=== PATIENT | female | born 1935 | race Caucasian/White ===

== ENCOUNTER 2021-07-09 10:55 | Outpatient (CLI) | payer MEDICARE, BC | END 2021-07-09 10:56 | disposition home or self-care (01) | LOC: CSHMAMMO 10:55 | PROVIDERS: ATTEND Family Medicine | DX: M81.0 Age-related osteoporosis without current pathological fracture (principal); M85.88 Other specified disorders of bone density and structure, other site | CPT/HCPCS: 77080 ==

== ENCOUNTER 2021-08-05 22:15 | Inpatient (IN) | payer MEDICARE, BC ==
[2021-08-05] MEDS ORDERED: Diltiazem 125 MG/25 ML ONE (22:45)
[2021-08-05 23:07] LABS: #Eosinphils 0.1 10x3/uL (0.0-0.5); #Monocytes 0.5 10x3/uL (0.0-1.1); #Neutrophils 1.8 10x3/uL (1.5-8.4); %Basophils 0.8 % (0.0-2.0); %Eosinophils 2.8 % (0.0-6.0); %Lymphocytes 38.2 % (18.0-47.0); %Monocytes 12.1 % (0.0-10.0); %Neutrophils 45.8 % (40.0-75.0); Hemoglobin 11.7 g/dL (12.0-15.5); Mean Corpuscular HGB CONC 32.4 g/dL (32.0-36.0); Mean Corpuscular Hemoglobin 31.3 pg (27.0-33.0); Mean Corpuscular Volume 96.5 fl (81.6-98.3); Mean Platelet Volume 10.1 fl (7.4-10.4); Platelet Count 148 10x3/uL (150-450); RBC Distribution Width 12.6 % (11.5-14.5); Red Blood Cell (RBC) Count 3.74 10x6/uL (3.90-5.03)
[2021-08-05 23:21] LABS: ALT (SGPT) 15 U/L (8-55); AST (SGOT) 21 U/L (5-34); Albumin 4.1 g/dL (3.4-4.8); Alkaline Phosphatase 64 U/L (40-110); Anion Gap 15 mmol/L (10-20); BUN (Urea Nitrogen) 14 mg/dL (9.8-20.1); Bilirubin, Total 0.4 mg/dL (0.2-1.2); Calc. Creatinine Clearance 0 mL/min (70-130); Calcium 9.9 mg/dL (7.8-10.44); Carbon Dioxide 26 mmol/L (23-31); Chloride 102 mmol/L (98-107); Globulin 3.1 g/dL (2.4-3.5); Glucose 150 mg/dL (83-110); Magnesium 1.8 mg/dL (1.6-2.6); Potassium 3.3 mmol/L (3.5-5.1); Protein, Total 7.2 g/dL (5.8-8.1); Sodium 140 mmol/L (136-145)
[2021-08-06] MEDS ORDERED: Ondansetron PF 4 MG/2 ML Vial IVP PRN (00:35)
[2021-08-06] MEDS ORDERED: Ondansetron ODT 4 MG TAB PO PRN (00:35)
[2021-08-06] MEDS ORDERED: Acetaminophen 325 MG TAB PO PRN (00:35)
[2021-08-06 00:44] LABS: SARS-CoV-2 NAA Rapid Test Not Detected (NotDetected)
[2021-08-06] MEDS ORDERED: Potassium Chloride 20 MEQ TAB PO SCH (00:45)
[2021-08-06] MEDS ORDERED: Diltiazem 125 MG, Admixture Fee 1 EACH in Sodium Chloride 0.9% 100 ML IVPB SCH (01:00)
[2021-08-06 01:22] LABS: INR-International Normal Ratio 0.9; PTT 23.4 sec (22.0-33.0); Prothrombin Time 9.9 sec (9.5-12.1)
[2021-08-06 01:45] LABS: #Eosinphils 0.1 10x3/uL (0.0-0.5); #Monocytes 0.6 10x3/uL (0.0-1.1); #Neutrophils 2.4 10x3/uL (1.5-8.4); %Basophils 0.7 % (0.0-2.0); %Eosinophils 3.2 % (0.0-6.0); %Lymphocytes 28.7 % (18.0-47.0); %Monocytes 13.3 % (0.0-10.0); %Neutrophils 53.9 % (40.0-75.0); Hemoglobin 11.3 g/dL (12.0-15.5); Mean Corpuscular HGB CONC 33.9 g/dL (32.0-36.0); Mean Corpuscular Hemoglobin 31.9 pg (27.0-33.0); Mean Corpuscular Volume 94.1 fl (81.6-98.3); Mean Platelet Volume 10.2 fl (7.4-10.4); Platelet Count 137 10x3/uL (150-450); RBC Distribution Width 12.5 % (11.5-14.5); Red Blood Cell (RBC) Count 3.54 10x6/uL (3.90-5.03); White Blood Cell (WBC) Count 4.4 10x3/uL (3.5-10.5)
[2021-08-06 02:03] LABS: Magnesium 1.8 mg/dL (1.6-2.6)
[2021-08-06 02:05] VITALS: BMI 24.0
[2021-08-06 02:07] LABS: Troponin I 0.027 ng/mL (< 0.028)
[2021-08-06] MEDS: Apixaban 5 MG TAB PO SCH ×2 (02:22→13:32)
[2021-08-06 02:23] LABS: Anion Gap 16 mmol/L (10-20); BUN (Urea Nitrogen) 13 mg/dL (9.8-20.1); Calc. Creatinine Clearance 50 mL/min (70-130); Calcium 9.7 mg/dL (7.8-10.44); Carbon Dioxide 25 mmol/L (23-31); Cardiac Risk 2.4 (Less than 4.5); Chloride 105 mmol/L (98-107); Cholesterol 157 mg/dl (< 200 Desired); Glucose 119 mg/dL (83-110); HDL Cholesterol 65 mg/dL (>60 Neg Risk); LDL Cholesterol, Calculated 75 mg/dL; Potassium 3.7 mmol/L (3.5-5.1); Sodium 142 mmol/L (136-145); Triglycerides 84 mg/dL (Less than 150)
[2021-08-06] MEDS ORDERED: Potassium Chloride 20 MEQ in Premix Bag 1 BAG IVPB SCH (03:00)
[2021-08-06 04:51] LABS: Troponin I 0.046 ng/mL (< 0.028)
[2021-08-06] MEDS ORDERED: Loratadine 10 MG TAB PO PRN (07:59)
[2021-08-06] MEDS ORDERED: Moisturizing Cream (Eucerin) 113 GM JAR TOP PRN (07:59)
[2021-08-06] MEDS ORDERED: Labetalol HCl 100 MG/20 ML VIAL SLOW IVP PRN (07:59)
[2021-08-06] MEDS ORDERED: Artificial Tear Sol 15 ML BOT EA EYE PRN (07:59)
[2021-08-06] MEDS ORDERED: Senokot S 8.6-50 MG TAB PO PRN (07:59)
[2021-08-06] MEDS ORDERED: Calcium Carbonate 500 MG ChewTAB PO PRN (07:59)
[2021-08-06] MEDS ORDERED: Loperamide HCl 2 MG CAP PO PRN (07:59)
[2021-08-06] MEDS ORDERED: HYDROcodone/Acetaminophen 5/325 mg Tablet PO PRN (07:59)
[2021-08-06] MEDS ORDERED: Sodium Chloride 0.65% Nasal 44 ML BOT EA NARE PRN (07:59)
[2021-08-06] MEDS ORDERED: Cepastat Lozenges 1 LOZ PO PRN (07:59)
[2021-08-06] MEDS: Multivit, Therapeutic 1 TAB PO SCH (08:05)
[2021-08-06] MEDS: Lisinopril 20 MG TAB PO SCH (08:05)
[2021-08-06] MEDS ORDERED: guaiFENesin 100 MG/5 ML UDCUP PO PRN (08:32)
[2021-08-06] MEDS ORDERED: Amlodipine 5 MG TAB PO SCH ×2 (09:00)
[2021-08-06] MEDS ORDERED: Metoprolol Tartrate 50 MG TAB PO SCH (09:00)
[2021-08-06] MEDS ORDERED: Magnesium Oxide 400 MG TAB PO SCH (11:00)
[2021-08-06] MEDS: Magnesium Oxide 400 MG TAB PO SCH (11:38)
[2021-08-06] MEDS: Carvedilol 6.25 MG TAB PO SCH (17:09)
[2021-08-06] MEDS: Atorvastatin Calcium 10 MG TAB PO SCH (20:21)
[2021-08-06] MEDS: Amiodarone 200 MG TAB PO SCH (20:21)
[2021-08-06] MEDS ORDERED: Melatonin 3 MG TAB PO PRN (21:00)
[2021-08-07] MEDS: Apixaban 5 MG TAB PO SCH ×3 (00:33→20:10)
[2021-08-07 04:04] LABS: #Eosinphils 0.2 10x3/uL (0.0-0.5); #Monocytes 0.4 10x3/uL (0.0-1.1); #Neutrophils 2.3 10x3/uL (1.5-8.4); %Basophils 0.7 % (0.0-2.0); %Lymphocytes 27.8 % (18.0-47.0); %Monocytes 10.4 % (0.0-10.0); %Neutrophils 56.9 % (40.0-75.0); Hemoglobin 11.3 g/dL (12.0-15.5); Mean Corpuscular HGB CONC 33.5 g/dL (32.0-36.0); Mean Corpuscular Hemoglobin 32.3 pg (27.0-33.0); Mean Corpuscular Volume 96.3 fl (81.6-98.3); Mean Platelet Volume 9.9 fl (7.4-10.4); Platelet Count 129 10x3/uL (150-450); RBC Distribution Width 12.5 % (11.5-14.5)
[2021-08-07 04:29] LABS: ALT (SGPT) 13 U/L (8-55); AST (SGOT) 18 U/L (5-34); Albumin 3.5 g/dL (3.4-4.8); Alkaline Phosphatase 57 U/L (40-110); Anion Gap 14 mmol/L (10-20); BUN (Urea Nitrogen) 14 mg/dL (9.8-20.1); Bilirubin, Total 0.6 mg/dL (0.2-1.2); Calc. Creatinine Clearance 50 mL/min (70-130); Calcium 9.7 mg/dL (7.8-10.44); Carbon Dioxide 25 mmol/L (23-31); Chloride 103 mmol/L (98-107); Globulin 2.7 g/dL (2.4-3.5); Glucose 116 mg/dL (83-110); Magnesium 1.8 mg/dL (1.6-2.6); Phosphorus 3.6 mg/dL (2.3-4.7); Potassium 4.2 mmol/L (3.5-5.1); Protein, Total 6.2 g/dL (5.8-8.1); Sodium 138 mmol/L (136-145)
[2021-08-07] MEDS: Magnesium Oxide 400 MG TAB PO SCH (08:02)
[2021-08-07] MEDS: Multivit, Therapeutic 1 TAB PO SCH (08:02)
[2021-08-07] MEDS: Amiodarone 200 MG TAB PO SCH ×2 (08:03→20:10)
[2021-08-07] MEDS: Lisinopril 20 MG TAB PO SCH (08:03)
[2021-08-07] MEDS: Carvedilol 6.25 MG TAB PO SCH (08:03)
[2021-08-07] MEDS ORDERED: Carvedilol 6.25 MG TAB PO SCH (10:00)
[2021-08-07] MEDS ORDERED: Carvedilol 12.5 MG TAB PO SCH (10:00)
[2021-08-07] MEDS: hydrALAZINE 20 MG/ML VIAL SLOW IVP SCH ×2 (10:09→10:20)
[2021-08-07] MEDS ORDERED: hydrALAZINE 25 MG TAB PO SCH (15:00)
[2021-08-07] MEDS: Carvedilol 12.5 MG TAB PO SCH (17:32)
[2021-08-07] MEDS: Atorvastatin Calcium 10 MG TAB PO SCH (20:10)
[2021-08-08] MEDS: Carvedilol 12.5 MG TAB PO SCH (07:45)
[2021-08-08] MEDS: Lisinopril 20 MG TAB PO SCH (07:45)
[2021-08-08] MEDS: Amiodarone 200 MG TAB PO SCH (07:45)
[2021-08-08] MEDS: Apixaban 5 MG TAB PO SCH (07:45)
[2021-08-08] MEDS: Magnesium Oxide 400 MG TAB PO SCH (07:45)
[2021-08-08] MEDS: Multivit, Therapeutic 1 TAB PO SCH (07:46)
[2021-08-08] MEDS ORDERED: Amlodipine 5 MG TAB PO SCH ×2 (09:00→10:00)
[2021-08-08 12:49] VITALS: BP 149/70; TEMP 97.2
[2021-08-09] MEDS ORDERED: Amlodipine 5 MG TAB PO SCH (09:00)
== END 2021-08-08 15:29 | disposition home or self-care (01) | DRG 308 ==
LOC: CSHERS 22:15 → CSHICU 08-06 00:30 → CSHTELE 08-06 17:02
PROVIDERS: ADMIT Family Medicine; ATTEND Internal Medicine
DX: I48.0 Paroxysmal atrial fibrillation (principal); I50.21 Acute systolic (congestive) heart failure; E78.5 Hyperlipidemia, unspecified; K21.9 Gastro-esophageal reflux disease without esophagitis; E03.9 Hypothyroidism, unspecified; E87.6 Hypokalemia; K22.719 Barrett's esophagus with dysplasia, unspecified; E05.90 Thyrotoxicosis, unspecified without thyrotoxic crisis or storm; I25.5 Ischemic cardiomyopathy; I11.0 Hypertensive heart disease with heart failure; Z20.822 Contact with and (suspected) exposure to COVID-19; Z88.8 Allergy status to other drugs, medicaments and biological substances; Z85.3 Personal history of malignant neoplasm of breast; Z85.42 Personal history of malignant neoplasm of other parts of uterus; Z90.12 Acquired absence of left breast and nipple; Z79.899 Other long term (current) drug therapy; Z79.890 Hormone replacement therapy; Z79.82 Long term (current) use of aspirin; Z98.890 Other specified postprocedural states; Z80.8 Family history of malignant neoplasm of other organs or systems; Z86.018 Personal history of other benign neoplasm; Z90.710 Acquired absence of both cervix and uterus; Z90.721 Acquired absence of ovaries, unilateral; Z92.21 Personal history of antineoplastic chemotherapy; Z92.3 Personal history of irradiation
CPT/HCPCS: 36415; 36416; 71045; 80048; 80053; 80061; 83735; 83880; 84100; 84439; 84443; 84484; 85025; 85610; 85730; 93005; 93010; 93306; 96365; 96376; J0360; J3480; U0002

== ENCOUNTER 2021-08-25 13:22 | Emergency (ER) | payer MEDICARE, BC ==
[2021-08-25] MEDS ORDERED: Acetaminophen 500 MG TAB ONE (16:09)
== END 2021-08-25 16:30 | disposition home or self-care (01) ==
LOC: CSHERS 13:22
DX: S00.03XA Contusion of scalp, initial encounter (principal); S70.02XA Contusion of left hip, initial encounter; I10 Essential (primary) hypertension; E78.5 Hyperlipidemia, unspecified; K21.9 Gastro-esophageal reflux disease without esophagitis; W18.30XA Fall on same level, unspecified, initial encounter
CPT/HCPCS: 70450

== ENCOUNTER 2021-08-25 17:39 | Emergency (ER) | payer MEDICARE, BC ==
[2021-08-25 18:19] LABS: #Eosinphils 0.1 10x3/uL (0.0-0.5); #Monocytes 0.5 10x3/uL (0.0-1.1); %Basophils 0.4 % (0.0-2.0); %Eosinophils 1.9 % (0.0-6.0); %Lymphocytes 14.8 % (18.0-47.0); %Monocytes 7.2 % (0.0-10.0); %Neutrophils 75.6 % (40.0-75.0); Hemoglobin 10.6 g/dL (12.0-15.5); Mean Corpuscular HGB CONC 34.1 g/dL (32.0-36.0); Mean Platelet Volume 10.3 fl (7.4-10.4); Platelet Count 144 10x3/uL (150-450); RBC Distribution Width 13.1 % (11.5-14.5); Red Blood Cell (RBC) Count 3.31 10x6/uL (3.90-5.03); White Blood Cell (WBC) Count 6.7 10x3/uL (3.5-10.5)
[2021-08-25 18:34] LABS: ALT (SGPT) 13 U/L (8-55); AST (SGOT) 21 U/L (5-34); Albumin 3.7 g/dL (3.4-4.8); Alkaline Phosphatase 49 U/L (40-110); Anion Gap 16 mmol/L (10-20); BUN (Urea Nitrogen) 15 mg/dL (9.8-20.1); Bilirubin, Total 0.5 mg/dL (0.2-1.2); Calc. Creatinine Clearance 0 mL/min (70-130); Calcium 8.8 mg/dL (7.8-10.44); Carbon Dioxide 22 mmol/L (23-31); Chloride 100 mmol/L (98-107); Globulin 2.4 g/dL (2.4-3.5); Glucose 129 mg/dL (83-110); Potassium 4.6 mmol/L (3.5-5.1); Protein, Total 6.1 g/dL (5.8-8.1); Sodium 133 mmol/L (136-145)
== END 2021-08-25 19:36 | disposition home or self-care (01) ==
LOC: CSHERS 17:39
DX: R55 Syncope and collapse (principal); I10 Essential (primary) hypertension; E78.5 Hyperlipidemia, unspecified; K21.9 Gastro-esophageal reflux disease without esophagitis; Z85.3 Personal history of malignant neoplasm of breast; Z79.899 Other long term (current) drug therapy; Z79.82 Long term (current) use of aspirin; Z79.01 Long term (current) use of anticoagulants
CPT/HCPCS: 36416; 80053; 84484; 85025; 93005

== ENCOUNTER 2022-01-04 21:36 | Emergency (ER) | payer MEDICARE, BC ==
[~2022-01-04 21:36] MED LIST: Iopamidol 300 61% 100 ML VIAL FS ONE
[2022-01-04 22:45] LABS: #Eosinphils 0.1 10x3/uL (0.0-0.5); #Monocytes 0.5 10x3/uL (0.0-1.1); #Neutrophils 2.1 10x3/uL (1.5-8.4); %Basophils 1.1 % (0.0-2.0); %Lymphocytes 25.3 % (18.0-47.0); %Monocytes 13.2 % (0.0-10.0); %Neutrophils 56.9 % (40.0-75.0); Hemoglobin 9.4 g/dL (12.0-15.5); Mean Corpuscular HGB CONC 31.8 g/dL (32.0-36.0); Mean Corpuscular Volume 94.6 fl (81.6-98.3); Mean Platelet Volume 10.3 fl (7.4-10.4); Platelet Count 200 10x3/uL (150-450); RBC Distribution Width 14.9 % (11.5-14.5); Red Blood Cell (RBC) Count 3.13 10x6/uL (3.90-5.03); White Blood Cell (WBC) Count 3.6 10x3/uL (3.5-10.5)
[2022-01-04 22:56] LABS: INR-International Normal Ratio 1.1; PTT 28.5 sec (22.0-33.0); Prothrombin Time 11.5 sec (9.5-12.1)
[2022-01-04 22:59] LABS: ALT (SGPT) 13 U/L (8-55); AST (SGOT) 24 U/L (5-34); Albumin 3.9 g/dL (3.4-4.8); Alkaline Phosphatase 73 U/L (40-110); Anion Gap 13 mmol/L (10-20); BUN (Urea Nitrogen) 16 mg/dL (9.8-20.1); Bilirubin, Total 0.5 mg/dL (0.2-1.2); Calc. Creatinine Clearance 0 mL/min (70-130); Calcium 9.2 mg/dL (7.8-10.44); Carbon Dioxide 23 mmol/L (23-31); Chloride 101 mmol/L (98-107); Estimated GFR 58; Globulin 3.3 g/dL (2.4-3.5); Glucose 112 mg/dL (83-110); Protein, Total 7.2 g/dL (5.8-8.1); Sodium 133 mmol/L (136-145)
== END 2022-01-04 23:50 | disposition home or self-care (01) ==
LOC: CSHERS 21:36
DX: N93.9 Abnormal uterine and vaginal bleeding, unspecified (principal); I10 Essential (primary) hypertension; E78.5 Hyperlipidemia, unspecified; K21.9 Gastro-esophageal reflux disease without esophagitis; Z79.899 Other long term (current) drug therapy; Z79.01 Long term (current) use of anticoagulants; Z79.82 Long term (current) use of aspirin
CPT/HCPCS: 74177; 80053; 85025; 85610; 85730

== ENCOUNTER 2022-03-24 22:23 | Inpatient (IN) | payer MEDICARE, BC ==
[2022-03-24] MEDS ORDERED: hydrALAZINE 20 MG/ML VIAL ONE (23:07)
[2022-03-24] MEDS ORDERED: cefTRIAXone\\ROCEPHIN 1 GM VIAL ONE (23:14)
[2022-03-24 23:16] LABS: #Eosinphils 0.1 10x3/uL (0.0-0.5); #Monocytes 0.5 10x3/uL (0.0-1.1); #Neutrophils 4.6 10x3/uL (1.5-8.4); %Basophils 0.3 % (0.0-2.0); %Eosinophils 1.3 % (0.0-6.0); %Lymphocytes 13.8 % (18.0-47.0); %Monocytes 8.1 % (0.0-10.0); Hemoglobin 10.2 g/dL (12.0-15.5); Mean Corpuscular HGB CONC 33.6 g/dL (32.0-36.0); Mean Corpuscular Volume 89.4 fl (81.6-98.3); Mean Platelet Volume 9.8 fl (7.4-10.4); Platelet Count 229 10x3/uL (150-450); RBC Distribution Width 15.9 % (11.5-14.5); White Blood Cell (WBC) Count 6.1 10x3/uL (3.5-10.5)
[2022-03-24 23:29] LABS: Bilirubin Neg (Negative); Blood, Urine 10 (Negative); Glucose, Urine (Dipstick) Normal (Negative); Ketone, Urine Negative (Negative); Leukocyte 500 (Negative); Nitrite Negative (Negative); Protein, Urine (Dipstick) 100 mg/dl (Neg-Trace); Urobilinogen Normal mg/dL (Less than 2)
[2022-03-24 23:31] LABS: ALT (SGPT) 13 U/L (8-55); AST (SGOT) 19 U/L (5-34); Albumin 3.4 g/dL (3.4-4.8); Alkaline Phosphatase 89 U/L (40-110); Anion Gap 15 mmol/L (10-20); BUN (Urea Nitrogen) 11 mg/dL (9.8-20.1); Bilirubin, Total 0.6 mg/dL (0.2-1.2); Calc. Creatinine Clearance 0 mL/min (70-130); Calcium 8.3 mg/dL (7.8-10.44); Carbon Dioxide 19 mmol/L (23-31); Chloride 99 mmol/L (98-107); Estimated GFR 68; Globulin 3.9 g/dL (2.4-3.5); Glucose 122 mg/dL (83-110); Protein, Total 7.3 g/dL (5.8-8.1); Sodium 129 mmol/L (136-145)
[2022-03-24 23:32] LABS: Clarity Slightly Cloudy (Clear)
[2022-03-24 23:42] LABS: Bacteria/HPF Rare-Few HPF (None Seen); RBC/HPF 0-3 HPF (0-3); Squamous Epithelial 0-3 HPF (0-3)
[2022-03-24] MEDS ORDERED: Ondansetron PF 4 MG/2 ML Vial ONE (23:50)
[2022-03-25] MEDS ORDERED: Nitroglycerin 2% Ointment 1 INCH/1 GM Packet ONE (00:28)
[2022-03-25] MEDS ORDERED: Azithromycin 500 MG VIAL ONE (00:28)
[2022-03-25 00:35] LABS: SARS-CoV-2 NAA Rapid Test Not Detected (NotDetected)
[2022-03-25] MEDS ORDERED: Guaifenesin DM 100-10/5 ML UDCUP PO PRN (00:52)
[2022-03-25] MEDS ORDERED: Acetaminophen 325 MG TAB PO PRN (00:52)
[2022-03-25] MEDS ORDERED: Calcium Carbonate 500 MG ChewTAB PO PRN (00:52)
[2022-03-25] MEDS ORDERED: Senokot S 8.6-50 MG TAB PO PRN (00:52)
[2022-03-25] MEDS ORDERED: Ondansetron PF 4 MG/2 ML Vial IVP PRN (00:52)
[2022-03-25] MEDS ORDERED: Furosemide 40 MG/4 ML VIAL SLOW IVP SCH (01:00)
[2022-03-25] MEDS ORDERED: Furosemide 40 MG/4 ML VIAL ONE ×2 (02:05→08:54)
[2022-03-25 04:13] LABS: Anion Gap 14 mmol/L (10-20); BUN (Urea Nitrogen) 11 mg/dL (9.8-20.1); Calc. Creatinine Clearance 0 mL/min (70-130); Calcium 7.5 mg/dL (7.8-10.44); Carbon Dioxide 20 mmol/L (23-31); Chloride 100 mmol/L (98-107); Estimated GFR 75; Glucose 126 mg/dL (83-110); Potassium 3.9 mmol/L (3.5-5.1); Sodium 130 mmol/L (136-145)
[2022-03-25 04:36] LABS: #Monocytes 0.5 10x3/uL (0.0-1.1); #Neutrophils 5.6 10x3/uL (1.5-8.4); %Basophils 0.1 % (0.0-2.0); %Eosinophils 0.4 % (0.0-6.0); %Lymphocytes 13.2 % (18.0-47.0); %Monocytes 7.3 % (0.0-10.0); %Neutrophils 78.3 % (40.0-75.0); Mean Corpuscular HGB CONC 33.2 g/dL (32.0-36.0); Mean Corpuscular Hemoglobin 29.5 pg (27.0-33.0); Mean Corpuscular Volume 88.9 fl (81.6-98.3); Mean Platelet Volume 9.9 fl (7.4-10.4); Platelet Count 205 10x3/uL (150-450); RBC Distribution Width 15.9 % (11.5-14.5); Red Blood Cell (RBC) Count 3.05 10x6/uL (3.90-5.03); White Blood Cell (WBC) Count 7.1 10x3/uL (3.5-10.5)
[2022-03-25] MEDS: Levothyroxine Sodium 112 MCG TAB PO SCH (05:12)
[2022-03-25] MEDS: Levothyroxine Sodium 25 MCG TAB PO SCH (05:12)
[2022-03-25 07:39] VITALS: BMI 21.4
[2022-03-25] MEDS: Calcium Carbonate 600 MG + Vit D TAB PO SCH (08:48)
[2022-03-25] MEDS: Amiodarone 200 MG TAB PO SCH ×2 (08:49→21:59)
[2022-03-25] MEDS: Lisinopril 20 MG TAB PO SCH (08:49)
[2022-03-25] MEDS: Docusate 100 MG CAP PO SCH ×2 (08:49→21:59)
[2022-03-25] MEDS: Multivit, Therapeutic 1 TAB PO SCH (08:50)
[2022-03-25] MEDS ORDERED: Aspirin Chewable 81 MG TAB ONE (08:53)
[2022-03-25] MEDS ORDERED: Benzonatate 100 MG CAP ONE ×2 (08:53→15:40)
[2022-03-25] MEDS ORDERED: Amlodipine 5 MG TAB ONE (08:54)
[2022-03-25] MEDS ORDERED: Carvedilol 12.5 MG TAB ONE ×2 (08:55→15:41)
[2022-03-25] MEDS: Furosemide 20 MG/2 ML VIAL SLOW IVP SCH (09:05)
[2022-03-25] MEDS: Carvedilol 12.5 MG TAB PO SCH ×2 (09:05→15:46)
[2022-03-25] MEDS: Benzonatate 100 MG CAP PO SCH ×3 (09:06→21:59)
[2022-03-25] MEDS: Aspirin 81 mg Enteric Coated Tablet PO SCH (09:06)
[2022-03-25] MEDS: Amlodipine 5 MG TAB PO SCH (09:06)
[2022-03-25] MEDS ORDERED: Atorvastatin Calcium 10 MG TAB PO SCH (21:00)
[2022-03-25] MEDS ORDERED: cefTRIAXone\\ROCEPHIN 1 GM in Sodium Chloride 0.9% 100 ML IVPB SCH (23:00)
[2022-03-26] MEDS ORDERED: Azithromycin 500 MG in Sodium Chloride 0.9% 250 ML 250 ML IVPB SCH (00:01)
[2022-03-26 04:03] LABS: #Monocytes 0.6 10x3/uL (0.0-1.1); #Neutrophils 5.6 10x3/uL (1.5-8.4); %Basophils 0.1 % (0.0-2.0); %Eosinophils 0.4 % (0.0-6.0); %Lymphocytes 14.1 % (18.0-47.0); %Monocytes 8.2 % (0.0-10.0); %Neutrophils 76.8 % (40.0-75.0); Hemoglobin 8.9 g/dL (12.0-15.5); Mean Corpuscular HGB CONC 32.8 g/dL (32.0-36.0); Mean Corpuscular Hemoglobin 29.4 pg (27.0-33.0); Mean Corpuscular Volume 89.4 fl (81.6-98.3); Mean Platelet Volume 9.9 fl (7.4-10.4); Platelet Count 229 10x3/uL (150-450); RBC Distribution Width 15.9 % (11.5-14.5); Red Blood Cell (RBC) Count 3.03 10x6/uL (3.90-5.03); White Blood Cell (WBC) Count 7.3 10x3/uL (3.5-10.5)
[2022-03-26 04:18] LABS: Anion Gap 12 mmol/L (10-20); BUN (Urea Nitrogen) 16 mg/dL (9.8-20.1); Calc. Creatinine Clearance 43 mL/min (70-130); Calcium 7.6 mg/dL (7.8-10.44); Carbon Dioxide 22 mmol/L (23-31); Chloride 97 mmol/L (98-107); Estimated GFR 71; Glucose 100 mg/dL (83-110); Potassium 3.6 mmol/L (3.5-5.1); Sodium 127 mmol/L (136-145)
[2022-03-26] MEDS: Levothyroxine Sodium 25 MCG TAB PO SCH (05:46)
[2022-03-26] MEDS: Levothyroxine Sodium 112 MCG TAB PO SCH (05:46)
[2022-03-26] MEDS: Furosemide 20 MG/2 ML VIAL SLOW IVP SCH (10:35)
[2022-03-26] MEDS: Calcium Carbonate 600 MG + Vit D TAB PO SCH (10:35)
[2022-03-26] MEDS: Multivit, Therapeutic 1 TAB PO SCH (10:35)
[2022-03-26] MEDS: Benzonatate 100 MG CAP PO SCH (10:35)
[2022-03-26] MEDS: Aspirin 81 mg Enteric Coated Tablet PO SCH (10:35)
[2022-03-26] MEDS: Docusate 100 MG CAP PO SCH (10:36)
[2022-03-26] MEDS: Amiodarone 200 MG TAB PO SCH (10:36)
[2022-03-26] MEDS: Carvedilol 12.5 MG TAB PO SCH (10:36)
[2022-03-26] MEDS: Amlodipine 5 MG TAB PO SCH (10:36)
[2022-03-26] MEDS: Lisinopril 20 MG TAB PO SCH (10:37)
[2022-03-26 14:31] VITALS: BP 99/52; TEMP 98.2
== END 2022-03-26 14:55 | disposition home or self-care (01) | DRG 193 ==
LOC: CSHERS 22:23 → CSHERHOLD 03-25 01:00 → CSHTELE 03-25 20:52
PROVIDERS: ADMIT Student in an Organized Health Care Education/Training Program; ATTEND Student in an Organized Health Care Education/Training Program
DX: J18.9 Pneumonia, unspecified organism (principal); I50.23 Acute on chronic systolic (congestive) heart failure; J96.01 Acute respiratory failure with hypoxia; E87.1 Hypo-osmolality and hyponatremia; I16.0 Hypertensive urgency; I11.0 Hypertensive heart disease with heart failure; E03.9 Hypothyroidism, unspecified; E78.5 Hyperlipidemia, unspecified; I48.0 Paroxysmal atrial fibrillation; K21.9 Gastro-esophageal reflux disease without esophagitis; K59.00 Constipation, unspecified; Z96.642 Presence of left artificial hip joint; Z90.12 Acquired absence of left breast and nipple; Z79.899 Other long term (current) drug therapy; Z85.3 Personal history of malignant neoplasm of breast; Z85.42 Personal history of malignant neoplasm of other parts of uterus; Z90.710 Acquired absence of both cervix and uterus; Z98.890 Other specified postprocedural states; Z80.9 Family history of malignant neoplasm, unspecified; Z88.8 Allergy status to other drugs, medicaments and biological substances; Z79.82 Long term (current) use of aspirin; Z20.822 Contact with and (suspected) exposure to COVID-19
CPT/HCPCS: 36415; 71045; 80048; 80053; 81003; 81015; 83605; 83880; 84145; 84443; 84484; 85025; 87040; 87086; 93005; 93010; 93306; 94760; 96365; 96375; J0360; J0456; J0696; J1940; J1956; J2405; J3490; J7050

== ENCOUNTER 2022-04-02 16:31 | Inpatient (IN) | payer MEDICARE, BC ==
[~2022-04-02 16:31] MED LIST changes: -Iopamidol 300 61% 100 ML VIAL FS ONE; +Iopamidol 370 76% 100 ML VIAL ONE
[2022-04-02 17:07] LABS: Actual Bicarbonate (HCO3v) 25 mEq/L (22-28); Base Excess -0.2 mEq/L (-2.0 to +3.0); Calcium, Ionized (venous) 1.03 mmol/L (1.16-1.32); Chloride (VBG) 97 mmol/L (98-106); Hemoglobin (Hb) 10.7 g/dL (11.7-16.1); Potassium (VBG) 3.43 mmol/L (3.70-5.30); Puncture Site Other Site; RapidComm Collect By CBN; Sodium 125.6 mmol/L (133-146); pH (venous) 7.38 (7.32-7.43)
[2022-04-02] MEDS ORDERED: NOREPINEPHRINE 8 MG/250 ML-D5W 250 ML ONE (17:13)
[2022-04-02 17:17] LABS: #Eosinphils 0.1 10x3/uL (0.0-0.5); #Monocytes 0.2 10x3/uL (0.0-1.1); #Neutrophils 2.6 10x3/uL (1.5-8.4); %Basophils 0.3 % (0.0-2.0); %Lymphocytes 24.1 % (18.0-47.0); %Monocytes 4.8 % (0.0-10.0); %Neutrophils 66.8 % (40.0-75.0); Hemoglobin 9.3 g/dL (12.0-15.5); Mean Corpuscular HGB CONC 33.6 g/dL (32.0-36.0); Mean Corpuscular Hemoglobin 29.9 pg (27.0-33.0); Mean Corpuscular Volume 89.1 fl (81.6-98.3); Mean Platelet Volume 10.3 fl (7.4-10.4); Platelet Count 275 10x3/uL (150-450); RBC Distribution Width 16.3 % (11.5-14.5); Red Blood Cell (RBC) Count 3.11 10x6/uL (3.90-5.03); White Blood Cell (WBC) Count 3.9 10x3/uL (3.5-10.5)
[2022-04-02 17:26] LABS: ALT (SGPT) 11 U/L (8-55); AST (SGOT) 25 U/L (5-34); Albumin 2.3 g/dL (3.4-4.8); Alkaline Phosphatase 62 U/L (40-110); Anion Gap 12 mmol/L (10-20); BUN (Urea Nitrogen) 24 mg/dL (9.8-20.1); Bilirubin, Total 0.5 mg/dL (0.2-1.2); Calc. Creatinine Clearance 0 mL/min (70-130); Calcium 7.7 mg/dL (7.8-10.44); Carbon Dioxide 21 mmol/L (23-31); Chloride 98 mmol/L (98-107); Estimated GFR 43; Glucose 117 mg/dL (83-110); Potassium 3.4 mmol/L (3.5-5.1); Protein, Total 5.3 g/dL (5.8-8.1); Sodium 128 mmol/L (136-145)
[2022-04-02 17:31] LABS: Bilirubin Neg (Negative); Blood, Urine Negative (Negative); Clarity Clear (Clear); Glucose, Urine (Dipstick) Normal (Negative); Ketone, Urine Negative (Negative); Leukocyte 25 (Negative); Nitrite Negative (Negative); Protein, Urine (Dipstick) 15 mg/dl (Neg-Trace); Urobilinogen Normal mg/dL (Less than 2)
[2022-04-02 17:55] LABS: Bacteria/HPF None Seen HPF (None Seen); RBC/HPF None Seen HPF (0-3); Squamous Epithelial 0-3 HPF (0-3); WBC/HPF None Seen HPF (0-3)
[2022-04-02 18:04] LABS: SARS-CoV-2 NAA Rapid Test Not Detected (NotDetected)
[2022-04-02] MEDS ORDERED: Hydrocortisone Sod Succ/PF 100 mg/2 ml Vial ONE (18:46)
[2022-04-02] MEDS ORDERED: Vancomycin 1 GM VIAL ONE (19:45)
[2022-04-02] MEDS ORDERED: Cefepime 2 GM VIAL ONE (19:45)
[2022-04-02] MEDS ORDERED: Acetaminophen 650 MG Suppository PR PRN (19:52)
[2022-04-02] MEDS ORDERED: Bisacodyl 10 MG SUPP PR PRN (19:56)
[2022-04-02] MEDS ORDERED: Piperacillin/Tazobactam 3.375 GM in Sodium Chloride 0.9% 100 ML IVPB SCH ×2 (20:00→22:00)
[2022-04-02] MEDS ORDERED: Potassium Chloride 40 MEQ in Premix Bag 1 BAG IVPB SCH (21:00)
[2022-04-02] MEDS ORDERED: Famotidine/PF 20 mg/2ml Vial SLOW IVP SCH (21:00)
[2022-04-02] MEDS ORDERED: Albumin 25% 25 GM/100 ML BOT IVPB SCH (21:00)
[2022-04-02] MEDS ORDERED: Dextrose 5 % And 0.9 % NaCl 1,000 ML IV SCH (21:00)
[2022-04-02] MEDS ORDERED: NOREPINEPHRINE 8 MG/250 ML-D5W 250 ML IVPB SCH (21:00)
[2022-04-02] MEDS: Pantoprazole 40 MG VIAL IVP SCH (21:23)
[2022-04-02] MEDS: Ondansetron PF 4 MG/2 ML Vial IVP PRN (21:27)
[2022-04-02] MEDS: Morphine 2 MG/ML VIAL SLOW IVP PRN (22:44)
[2022-04-03] MEDS ORDERED: Benzocaine 20% Spray 60 ML CAN PO SCH (00:45)
[2022-04-03] MEDS ORDERED: Lidocaine Viscous Sol 2% 15 ml UD Cup SSW SCH (00:45)
[2022-04-03] MEDS ORDERED: Furosemide 20 MG/2 ML VIAL SLOW IVP SCH ×2 (01:00→03:15)
[2022-04-03] MEDS: Piperacillin/Tazobactam 3.375 GM in Sodium Chloride 0.9% 100 ML IVPB SCH ×3 (01:52→21:00)
[2022-04-03 03:34] LABS: #Monocytes 0.6 10x3/uL (0.0-1.1); #Neutrophils 14.3 10x3/uL (1.5-8.4); %Basophils 0.1 % (0.0-2.0); %Lymphocytes 2.2 % (18.0-47.0); %Monocytes 3.8 % (0.0-10.0); %Neutrophils 93.3 % (40.0-75.0); Hemoglobin 9.9 g/dL (12.0-15.5); Mean Corpuscular HGB CONC 33.3 g/dL (32.0-36.0); Mean Corpuscular Hemoglobin 29.7 pg (27.0-33.0); Mean Corpuscular Volume 89.2 fl (81.6-98.3); Mean Platelet Volume 9.6 fl (7.4-10.4); Platelet Count 237 10x3/uL (150-450); RBC Distribution Width 16.4 % (11.5-14.5); Red Blood Cell (RBC) Count 3.33 10x6/uL (3.90-5.03); White Blood Cell (WBC) Count 15.3 10x3/uL (3.5-10.5)
[2022-04-03] MEDS ORDERED: FLU VACC QS2022-23(65YR UP)/PF 240 MCG/0.7 ML SYRINGE IM ONE (03:45)
[2022-04-03 03:47] LABS: Anion Gap 16 mmol/L (10-20); BUN (Urea Nitrogen) 28 mg/dL (9.8-20.1); Calc. Creatinine Clearance 27 mL/min (70-130); Carbon Dioxide 15 mmol/L (23-31); Chloride 105 mmol/L (98-107); Estimated GFR 37; Glucose 182 mg/dL (83-110); Magnesium 2.2 mg/dL (1.6-2.6); Potassium 4.1 mmol/L (3.5-5.1); Sodium 132 mmol/L (136-145)
[2022-04-03 03:50] LABS: Calcium 6.9 mg/dL (7.8-10.44)
[2022-04-03] MEDS: Morphine 2 MG/ML VIAL SLOW IVP PRN (04:47)
[2022-04-03] MEDS ORDERED: Calcium Gluc 4.6 MEQ/10 ML (100 MG/ML) SLOW IVP SCH (06:00)
[2022-04-03] MEDS: Pantoprazole 40 MG VIAL IVP SCH ×2 (07:56→21:00)
[2022-04-03] MEDS: Ondansetron PF 4 MG/2 ML Vial IVP PRN (08:40)
[2022-04-03] MEDS ORDERED: Vancomycin 1 GM in Premix Bag 1 BAG IVPB PRN (09:00)
[2022-04-03] MEDS ORDERED: Amino Acids 4.25 %/Dextrose 5% 2,000 ML BAG IV SCH (09:45)
[2022-04-03] MEDS ORDERED: Promethazine HCl 12.5 MG, Admixture Fee 1 EACH in Sodium Chloride 0.9% 50 ML IVPB PRN (09:48)
[2022-04-03] MEDS ORDERED: Fleet Enema 133 ML BOT PR SCH (10:00)
[2022-04-03] MEDS ORDERED: AA 4.25 %/CALCIUM/LYTES/D5W 2,000 ML IV SCH (10:00)
[2022-04-03] MEDS ORDERED: D5W-AA 4.25% with LYTES 1,000 ML IV SCH ×2 (10:30→22:30)
[2022-04-03 11:13] LABS: ALT (SGPT) 11 U/L (8-55); AST (SGOT) 22 U/L (5-34); Albumin 2.8 g/dL (3.4-4.8); Alkaline Phosphatase 49 U/L (40-110); Anion Gap 17 mmol/L (10-20); BUN (Urea Nitrogen) 33 mg/dL (9.8-20.1); Bilirubin, Total 0.7 mg/dL (0.2-1.2); Calc. Creatinine Clearance 23 mL/min (70-130); Calcium 7.4 mg/dL (7.8-10.44); Carbon Dioxide 16 mmol/L (23-31); Chloride 108 mmol/L (98-107); Estimated GFR 30; Globulin 2.4 g/dL (2.4-3.5); Glucose 174 mg/dL (83-110); Phosphorus 5.4 mg/dL (2.3-4.7); Protein, Total 5.2 g/dL (5.8-8.1); Sodium 137 mmol/L (136-145)
[2022-04-03] MEDS ORDERED: Moisturizing Cream (Eucerin) 113 GM JAR TOP PRN (17:52)
[2022-04-03] MEDS ORDERED: Benzonatate 100 MG CAP PO PRN (17:52)
[2022-04-03] MEDS ORDERED: diphenhydrAMINE 50 MG/ML VIAL IVP PRN (17:52)
[2022-04-03] MEDS ORDERED: Artificial Tear Sol 15 ML BOT EA EYE PRN (17:52)
[2022-04-03] MEDS ORDERED: Cepastat Lozenges 1 LOZ PO PRN (17:52)
[2022-04-04 03:16] LABS: Hemoglobin 8.2 g/dL (12.0-15.5); Mean Corpuscular HGB CONC 33.2 g/dL (32.0-36.0); Mean Corpuscular Hemoglobin 29.1 pg (27.0-33.0); Mean Corpuscular Volume 87.6 fl (81.6-98.3); Platelet Count 174 10x3/uL (150-450); RBC Distribution Width 16.8 % (11.5-14.5); Red Blood Cell (RBC) Count 2.82 10x6/uL (3.90-5.03); White Blood Cell (WBC) Count 12.2 10x3/uL (3.5-10.5)
[2022-04-04 03:42] LABS: MDiff Complete? YES
[2022-04-04 03:45] LABS: ALT (SGPT) 12 U/L (8-55); AST (SGOT) 25 U/L (5-34); Albumin 2.4 g/dL (3.4-4.8); Alkaline Phosphatase 45 U/L (40-110); Anion Gap 17 mmol/L (10-20); BUN (Urea Nitrogen) 48 mg/dL (9.8-20.1); Bilirubin, Total 0.6 mg/dL (0.2-1.2); Calc. Creatinine Clearance 21 mL/min (70-130); Carbon Dioxide 17 mmol/L (23-31); Chloride 106 mmol/L (98-107); Estimated GFR 26; Globulin 1.9 g/dL (2.4-3.5); Glucose 142 mg/dL (83-110); Magnesium 2.4 mg/dL (1.6-2.6); Potassium 3.7 mmol/L (3.5-5.1); Protein, Total 4.3 g/dL (5.8-8.1); Sodium 136 mmol/L (136-145)
[2022-04-04 03:49] LABS: Calcium 6.8 mg/dL (7.8-10.44)
[2022-04-04 03:51] LABS: Band 32 % (5-11); Lymphocytes 7 % (21-51); Metamyelocyte 3 % (0-0); Monocytes 1 % (0-10); Neutrophil 57 % (42-75)
[2022-04-04 03:52] LABS: Burr Cells SLIGHT = 2-5 cells (100X) (0-1/hpf)
[2022-04-04 03:53] LABS: Platelet Morphology Comment Appears Adequate; Toxic Granulation SLIGHT; Vacuoles SLIGHT
[2022-04-04] MEDS ORDERED: Calcium Gluc 4.6 MEQ/10 ML (100 MG/ML) SLOW IVP SCH (05:30)
[2022-04-04] MEDS: Piperacillin/Tazobactam 3.375 GM in Sodium Chloride 0.9% 100 ML IVPB SCH ×2 (08:13→20:03)
[2022-04-04] MEDS: Pantoprazole 40 MG VIAL IVP SCH ×2 (08:13→20:04)
[2022-04-04] MEDS ORDERED: D5W-AA 4.25% with LYTES 1,000 ML IV SCH ×2 (08:18→22:30)
[2022-04-04] MEDS ORDERED: Lactated Ringer's 1,000 ML IV SCH (08:30)
[2022-04-04 16:14] LABS: Anion Gap 11 mmol/L (10-20); BUN (Urea Nitrogen) 57 mg/dL (9.8-20.1); Calc. Creatinine Clearance 24 mL/min (70-130); Calcium 7.7 mg/dL (7.8-10.44); Carbon Dioxide 20 mmol/L (23-31); Chloride 104 mmol/L (98-107); Estimated GFR 31; Glucose 162 mg/dL (83-110); Potassium 3.4 mmol/L (3.5-5.1); Sodium 132 mmol/L (136-145)
[2022-04-04 18:02] VITALS: BMI 26.8
[2022-04-04] MEDS ORDERED: Polyethylene Glycol 3350 17 GM Packet PO SCH (18:15)
[2022-04-04 20:27] VITALS: TEMP 97.5
[2022-04-04] MEDS ORDERED: Ipratropium/Albuterol 3 ML NEB NEB PRN (23:11)
[2022-04-05 03:18] LABS: Hemoglobin 7.7 g/dL (12.0-15.5); Mean Corpuscular HGB CONC 32.4 g/dL (32.0-36.0); Mean Corpuscular Hemoglobin 29.3 pg (27.0-33.0); Mean Corpuscular Volume 90.5 fl (81.6-98.3); Platelet Count 144 10x3/uL (150-450); RBC Distribution Width 17.5 % (11.5-14.5); Red Blood Cell (RBC) Count 2.63 10x6/uL (3.90-5.03); White Blood Cell (WBC) Count 9.2 10x3/uL (3.5-10.5)
[2022-04-05 03:38] LABS: ALT (SGPT) 12 U/L (8-55); AST (SGOT) 20 U/L (5-34); Albumin 2.5 g/dL (3.4-4.8); Alkaline Phosphatase 46 U/L (40-110); Anion Gap 16 mmol/L (10-20); BUN (Urea Nitrogen) 61 mg/dL (9.8-20.1); Bilirubin, Total 0.5 mg/dL (0.2-1.2); Calc. Creatinine Clearance 18 mL/min (70-130); Calcium 7.8 mg/dL (7.8-10.44); Carbon Dioxide 18 mmol/L (23-31); Chloride 103 mmol/L (98-107); Estimated GFR 23; Globulin 2.7 g/dL (2.4-3.5); Glucose 142 mg/dL (83-110); Potassium 3.9 mmol/L (3.5-5.1); Protein, Total 5.2 g/dL (5.8-8.1); Sodium 133 mmol/L (136-145)
[2022-04-05 03:50] LABS: MDiff Complete? YES
[2022-04-05 03:57] LABS: Band 36 % (5-11); Burr Cells SLIGHT = 2-5 cells (100X) (0-1/hpf); Lymphocytes 7 % (21-51); Metamyelocyte 2 % (0-0); Monocytes 3 % (0-10); Neutrophil 52 % (42-75); Ovalocytes SLIGHT = 2-5 cells (100X) (0-1/hpf); Platelet Morphology Comment Appears Adequate; Toxic Granulation SLIGHT
[2022-04-05 04:25] VITALS: BP 128/100
[2022-04-05] MEDS ORDERED: Polyethylene Glycol 3350 17 GM Packet PO SCH (09:00)
== END 2022-04-05 09:50 | disposition expired | DRG 871 ==
LOC: CSHERS 16:31 → CSHICU 20:32 → CSHIMCU 21:38
PROVIDERS: ADMIT Student in an Organized Health Care Education/Training Program; ATTEND Family Medicine
PROC: 3E043XZ Introduction of Vasopressor into Central Vein, Percutaneous Approach (ICD-10-PCS; 2022-04-02)
PROC: 3E04329 Introduction of Other Anti-infective into Central Vein, Percutaneous Approach (ICD-10-PCS; 2022-04-02)
PROC: 06HY33Z Insertion of Infusion Device into Lower Vein, Percutaneous Approach (ICD-10-PCS; 2022-04-02)
PROC: 5A0945A Assistance with Respiratory Ventilation, 24-96 Consecutive Hours, High Flow/Velocity Cannula (ICD-10-PCS; principal; 2022-04-03)
DX: A41.9 Sepsis, unspecified organism (principal); J18.9 Pneumonia, unspecified organism; J69.0 Pneumonitis due to inhalation of food and vomit; J96.01 Acute respiratory failure with hypoxia; N17.0 Acute kidney failure with tubular necrosis; R65.21 Severe sepsis with septic shock; E87.1 Hypo-osmolality and hyponatremia; I50.22 Chronic systolic (congestive) heart failure; J90 Pleural effusion, not elsewhere classified; Z20.822 Contact with and (suspected) exposure to COVID-19; Z66 Do not resuscitate; R00.1 Bradycardia, unspecified; E78.5 Hyperlipidemia, unspecified; I48.0 Paroxysmal atrial fibrillation; I95.9 Hypotension, unspecified; K59.00 Constipation, unspecified; E87.6 Hypokalemia; K52.9 Noninfective gastroenteritis and colitis, unspecified; I11.0 Hypertensive heart disease with heart failure; E83.51 Hypocalcemia; R57.1 Hypovolemic shock; K21.9 Gastro-esophageal reflux disease without esophagitis; Z96.642 Presence of left artificial hip joint; E03.9 Hypothyroidism, unspecified; Z85.3 Personal history of malignant neoplasm of breast; Z79.899 Other long term (current) drug therapy; Z88.8 Allergy status to other drugs, medicaments and biological substances; Z85.42 Personal history of malignant neoplasm of other parts of uterus; Z90.710 Acquired absence of both cervix and uterus; Z80.9 Family history of malignant neoplasm, unspecified; Z90.12 Acquired absence of left breast and nipple
CPT/HCPCS: 36416; 71045; 71275; 74174; 74250; 80048; 80053; 81003; 81015; 82805; 83605; 83735; 83880; 84100; 84145; 84443; 84484; 85025; 87040; 93005; 94640; 94667; 94760; C9113; J0610; J0692; J1650; J1720; J1940; J2272; J2405; J2543; J3370; J3480; J3490; J7042; J7120; J7611; J7620; P9047; Q9967; U0002